=== PATIENT | female | born 1950 | race Caucasian/White ===

== ENCOUNTER → 2020-02-18 10:26 | Outpatient (BNVA) | payer MEDICARE, OTHER, SELFPAY | PROVIDERS: PCP Internal Medicine; Visit Provider Orthopaedic Surgery | DX: M75.52 Bursitis of left shoulder (principal) | CPT/HCPCS: 99202; J1100 ==

== ENCOUNTER 2020-09-17 13:54 | Outpatient (REF) | payer SELFPAY ==
--- NOTE | 2020-09-17 16:27 | MHC.AU.HFU ---
Hearing Instrument Follow-Up- Binaural Date of Visit: 09/17/20 Right Ear: Planning Director: Phonak Model: Audeo B 50-R Serial Number: [id number] Repair Warranty: 03/26/2020 Battery Size: Rechargeable Color: Champagne Lion Tamer: #1 Standard Type of Dome: Medium Open Type of Wax Guard: CeruStop Dispensed By: [facility] Date of Fittin12/29/2016 Left Ear: Planning Director: Phonak Model: Audeo B 50-R Serial Number: [id number] Repair Warranty: 03/26/2020 Battery Size: Rechargeable Color: Champagne Lion Tamer: #1 Standard Type of Dome: Medium Open Type of Wax Guard: CeruStop Dispensed By: [facility] Date of Fittin12/29/2020 Follow-Up Summary: Patient is back in the area for a few days. Her primary residence is in [place]. She reports the right hearing aid is not working, will not turn on even after charging. Cleaned both aids, flocculator operator, and microphones, changed domes. The left aid is amplifying well, but the right is not working. The right aid charging light does come on and blinks one time when pressing the button after removing from the emergency generator mechanic; however, the aid is not amplifying. Patient approved repair of the right aid for $315.00. Patient wants both hearing aids turned up. Not able to program the right aid, but increased the left aid overall 3 dB. Recommendations: -WHEN RIGHT REPAIR IS RECEIVED, PROGRAM TO 12/28/2018 SETTINGS AND INCREASE OVERALL 3 dB. Patient will be back in [place]. [id number] will pick up truck driver and pay for repair and mail to patient. Patient understands since the aids cannot be programmed together after the repair she will lose the binaural processing between the aids. - Advise audiologic re-evaluation. Patient plans to contact PCP and have order faxed to office when she knows she will be in the area again. Diagnosis Code(s): Primary Diagnosis: H90.3 Bilateral Sensorineural Hearing Loss Secondary Diagnosis: H93.13 Tinnitus, Bilateral Services Performed: [facility] Non-Quantity Charges: HANC: NonBillable Event Signature: Provider: Natalie Wright, [id number]
== END 2020-09-17 13:55 | disposition home or self-care (01) ==
LOC: HO.HAP 13:54
PROVIDERS: Visit Provider Internal Medicine
DX: Z13.89 Encounter for screening for other disorder (principal)

== ENCOUNTER 2020-09-30 14:30 | Outpatient (REF) | payer SELFPAY | END 2020-09-30 14:31 | disposition home or self-care (01) | LOC: HO.HAP 14:30 | PROVIDERS: Visit Provider Internal Medicine | DX: Z46.1 Encounter for fitting and adjustment of hearing aid (principal); H90.3 Sensorineural hearing loss, bilateral; H93.13 Tinnitus, bilateral | CPT/HCPCS: V5014 ==